=== PATIENT | female | born 1945 | race Caucasian/White ===

== ENCOUNTER → 2021-11-19 | Outpatient (CLI) | payer MEDICARE, SELFPAY ==
--- NOTE | 2021-11-19 11:40 | BRBX_PTH ---
PATIENT: MANUEL DEAN LOC: [facility] U#:[id number] AGE/SX: 75/F ROOM: RE11/19/[address]: Dr. Reji Murillo MD : 1945 BED: DIS: 11/19/2021 SPEC #: [id number] RECD: 11/19/21 12:21 STATUS: VALENTIN EVELIA #: [id number] FLORINDA: 11/19/21 11:[address]: Reji Murillo DEPT: SURGICAL PATHOLOGY RECD BY: Divina Landin Tissues: Right breast, NOS Procedures: Surgery Specimen Level IV HEADER OPERATION: Right breast stereotactic biopsy PRE-OP DIAGNOSIS: Right breast microcalcifications TISSUE SUBMITTED: Right breast core tissue ISCHEMIC TIME: 1 minute FIXATION TIME: 56 hours MICROSCOPIC DIAGNOSIS Right breast, stereotactic core biopsy: Hyalinized fibroadenoma with focal calcifications. Negative for atypia or malignancy. See comment. TIA:morgan 11/22/2021 COMMENT Correlation with clinical, radiologic findings and appropriate follow up are necessary. MICROSCOPIC DESCRIPTION Slides are reviewed. GROSS DESCRIPTION Received in fixative is one container labeled with the patient's name and designated right breast. The specimen consists of multiple elongated fragments of bone-yellow fibroadipose tissue that in aggregate measure 5 x 3 x 0.6 cm. The entire specimen is submitted in four cassettes. / SJ:rg 11/19/2021 TC:1 CPT: 92788
--- NOTE | 2021-11-19 11:58 | HP.PCM_ITS ---
History and Physical Date of Admission: 11/19/21 HISTORY AND PHYSICAL - BREAST COMPLAINT ? Irma Dobbins 1945 ? ? REFERRING PHYSICIAN: Mesha Manjarrez* ? CHIEF COMPLAINT: Mammographic microcalcification found on diagnostic imaging of breast (primary encounter diagnosis) ? HPI: The patient is a 75 year old female with a complaint of an abnormal mammogram. The patient had a mammogram without ultrasound on 11/10/2021 which demonstrated There are a grouped pleomorphic calcifications in the right breast at 9 o'clock middle depth. No other significant masses or calcifications are seen in the breast.: ? ? The patient denies a history of breast masses. She does perform a self breast exam routinely. She notes no skin changes. She denies nipple discharge. She notes no axillary masses. She notes no family history of breast problems. She notes no significant breast trauma or breast difficulties in the past. ? The patient is being seen by me today at the request of Dr. Manjarrez for my opinion and advice regarding Mammographic microcalcification found on diagnostic imaging of breast (primary encounter diagnosis). ? PAST MEDICAL HISTORY PAST MEDICAL HISTORY Diagnosis Date ? Disorder of bone and cartilage, unspecified ? ? High blood pressure ? ? High cholesterol ? ? ? PAST SURGICAL HISTORY PAST SURGICAL HISTORY Procedure Laterality Date ? PAST SURGICAL HISTORY OF ? ? ? PLASTIC SURGERY EYES AND NECK ? TOTAL ABDOMINAL HYSTERECT W/WO RMVL TUBE OVARY ? 1991 ? Hysterectomy, ÁNGEL FOR FIBROIDS ? ? ? CURRENT MEDICATIONS Current Outpatient Medications Medication Sig Dispense Refill ? alendronate sodium(FOSAMAX 35 MG TAB) Take once per week in the morning with a full glass of water, on an empty stomach, and do not take anything else by mouth or lie down for the next 30 minutes. 12 1 ? estradiol(JORGE 0.025 MG/24 HR TRANSDERM PATCH) APPLY ONCE WEEKLY DIRECTED 12 3 ? calcium citrate/vitamin d3(CITRACAL + D 315 MG-200 UNIT TAB) Take two(2) tablets twice daily. ? 0 ? No current facility-administered medications for this visit. ? ? ALLERGIES: Patient has no known allergies. ? PERSONAL HISTORY: SOCIAL HISTORY Social History ? Tobacco Use ? Smoking status: Never ? Smokeless tobacco: Never Substance Use Topics ? Alcohol use: No ? Drug use: No ? FAMILY HISTORY: FAMILY HISTORY FAMILY HISTORY Problem Relation Age of Onset ? Cancer Father ? ? THYROID CANCER ? Diabetes Mother ? ? ? REVIEW OF SYMPTOMS: The review of systems data was entered by the nurse and reviewed by me ? Nursing Notes: Viviana Reardon 11/12/2021 9:07 AM Signed REVIEW OF SYSTEMS: General: The patient denies fatigue, denies weight loss, denies weight gain, denies feeling hot, and denies feelings of cold. Eyes: The patient denies glaucoma, denies eye injury/surgery, does not wear glasses or contacts. Ear/Nose/Throat: The patient denies allergies, denies hayfever, denies ear infections, and denies bloody noses. Cardiovascular: The patient denies chest pain, denies heart disease, NOTES high blood pressure,denies cardiac stent, denies prior heart attack, denies irregular heart beat, NOTES high cholesterol, denies poor circulation, denies heart failure, other cardiac issues, denies claudication, denies cold feet, denies peripheral arterial stent. Respiratory: The patient denies tuberculosis, denies pneumonia, denies frequent cough, denies pulmonary embolism, denies shortness of breath, and denies coughing up blood. Gastrointestinal: The patient denies difficulty swallowing, denies acid reflux, denies ulcers, denies vomiting, denies jaundice/hepatitis, denies gallbladder problems, denies black or tarry stools, denies hemorrhoids, denies bleeding from rectum, denies diverticulitis, denies constipation, denies diarrhea, denies loss of stool control, and denies hernias. Kidney/Bladder: The patient denies kidney stones, denies urine infections, and denies bloody urine. Skin: The patient denies a history of skin cancer, denies bleeding/changing moles, and denies a history of skin rash. Neurologic: The patient denies a history of epilepsy/convulsions, denies headaches, denies head/spinal injuries, and denies stroke/TIA. Psychiatric: The patient denies psychiatric medications, denies depression, and denies voices, denies substance abuse. Endocrine: The patient denies thyroid disorders, denies diabetes, and denies hormonal problems. Hematologic: The patient denies a history of bruising, denies bleeding, and denies anemia, denies blood clots. Infections: The patient NOTES a history of measles and mumps, denies rheumatic fever, and denies sexually transmitted diseases. Musculoskeletal: The patient denies back pain/injury, NOTES back problems, denies sciatica, denies knee/foot trouble, denies arthritis, or denies gout. ? ? When was patient's last Mammogram screening? 11/10/2021 ? Last Colonoscopy: 2019 ? Viviana Reardon PHYSICAL EXAMINATION: ? General: The patient is 75 year old female, well nourished, well hydrated in no acute distress. The patient is oriented to time, place, and person. ? VITALS: Blood pressure 150/88, pulse 120, temperature 36.4 ?C (97.5 ?F), height 167.6 cm (5' 6), weight 88.9 kg (196 lb), SpO2 97 %. Body mass index is 31.64 kg/m?. ? HEENT: Normal cephalic, ataumatic, pupils are equally round, sclera are anicteric, mucous membranes are moist, oropharynx is clear. Neck has no masses, asymmetry or lymphadenopathy. Thyroid is unremarkable. ? Respiratory: Clear to auscultation and percussion. Normal respiratory excursion and pattern. ? Cardiac: Examination is regular rate and rhythm. ? Abdominal exam: Soft, nontender, with no palpable masses. No hep atosplenomegaly. No palpable hernias. ? Rectal exam: exam deferred Extremities: no clubbing, cyanosis or edema. No adenopathy. ? Breast: Visual inspection reveals no retractions, nipple inversion, or skin changes. Palpation of the right breast reveals no dominant or suspicious masses. Palpation of the left breast reveals no dominant or suspicious masses. Axillary exam demonstrates no suspicious masses in either the left or right axilla. There is no nipple discharge expressed from either the left or right breast. ? LABORATORY VALUES: As Noted ? RADIOLOGIC STUDIES: As Noted ? Assessment IMPRESSION: Mammographic microcalcification found on diagnostic imaging of breast (primary encounter diagnosis) ? PLAN: I plan to perform a stereotactic biopsy of the right breast. The planned surgical procedure was discussed extensively with the patient. The risks, benefits, anticipated outcomes and possible complications were mentioned. My staff has also explained the procedure in understandable terms and the patient was given the option to take printed material concerning the planned procedure. The patient had the opportunity to ask questions concerning the planned procedure. The patient freely consents to the planned procedure. ? ? Diagnoses: (R92.0) Mammographic microcalcification found on diagnostic imaging of breast (primary encounter diagnosis) ? A letter was sent to Dr. Manjarrez indicating the above finding for this patient. ? Return to Clinic: The patient is instructed to follow-up with me 1 week post operatively. ? COVID (Procedure Consent) Procedure Criteria ? Procedure Criteria: Yes Elective The surgeon/proceduralist and patient have discussed in detail the risk of exposure to and/or potential harm posed by the COVID-19 virus with having a surgery/procedure at this time versus the risk of? delaying the surgery/procedure. It is not possible to know either the risk of delaying the surgery or procedure or chance of getting an infection with perfect accuracy, but a joint decision was made between the patient and the surgeon/proceduralist ?to proceed at this time with the scheduled surgery/procedure as indicated on the consent form. ? ? Reji Murillo III, MD I have re-examined the patient. There are no clinical changes since date of exam.
--- NOTE | 2021-11-19 11:59 | OP.PCM_ITS ---
Problems Associated Problem List Diagnoses (1) Microcalcifications of the breast: Report of Operation Date of Procedure: 11/19/21 Pre-Operative Diagnosis: Microcalcifications right breast Post-Operative Diagnosis: Same Surgery/Procedure Performed:: Right stereotactic breast biopsy Surgeon: Reji Murillo preparation supervisor: None Type of Anesthesia: Local Description of Procedure: Patient was brought into the stereotactic room placed in the prone position on the fissure table. Lateral to medial view of the right breast was obtained. Microcalcifications were identified. ?15 degree views were obtained. Microcalcifications were targeted. The breast was prepped with Betadine. 1% lidocaine plain was injected. Skin june was made. Needle was placed in the prefire position and 2 more stereo views were obtained showing the area to be adequately targeted. I fired the needle. 360 degrees circumferential biopsies were obtained. I x-rayed my specimen. Microcalcifications were identified. I backed the needle off 7 mm. A Gelfoam titanium clip was placed in the biopsy cavity. The needle was removed. Stereotactic image was obtained. Showing the clip to be in good placement and virtually no microcalcifications were identified. Sterile dressings were applied standard mammograms were obtained the patient tolerated the procedure well. Admit VTE Documentation VTE Present on Admission: No VTE Mechan Device Prophylaxis: None VTE Pharm Prophylaxis ordered?: No Reason prophylaxis not ordered:: Treatment Not Indicated
== END | disposition home or self-care (01) ==
PROVIDERS: Visit Provider Surgery
DX: D24.1 Benign neoplasm of right breast (principal); E78.00 Pure hypercholesterolemia, unspecified; I10 Essential (primary) hypertension
CPT/HCPCS: 19081; 88305; A4648